=== PATIENT | female | born 1990 | race Hispanic/Latino ===

== ENCOUNTER 2017-06-11 02:41 | Emergency (ER) | payer SELFPAY ==
[2017-06-11] MEDS ORDERED: Lidocaine 1% PF 5 ML VIAL ONE (03:24)
[2017-06-11] MEDS ORDERED: Adacel (T-DAP) 0.5 ML VIAL ONE (04:15)
[2017-06-11] MEDS ORDERED: Bacitracin Zinc 1 Packet ONE (04:15)
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
== END 2017-06-11 04:45 | disposition home or self-care (01) ==
LOC: SCSER 02:41
DX: S61.412A Laceration without foreign body of left hand, initial encounter (principal); S61.452A Open bite of left hand, initial encounter; F41.9 Anxiety disorder, unspecified; F17.210 Nicotine dependence, cigarettes, uncomplicated; Y04.1XXA Assault by human bite, initial encounter
CPT/HCPCS: 12001; 90471; 90715; J2001

== ENCOUNTER 2017-11-09 13:32 | Emergency (ER) | payer SELFPAY | END 2017-11-09 14:33 | disposition home or self-care (01) | LOC: ERS 13:32 | DX: S06.0X0A Concussion without loss of consciousness, initial encounter (principal); F17.210 Nicotine dependence, cigarettes, uncomplicated; Y04.8XXA Assault by other bodily force, initial encounter | CPT/HCPCS: 99283 ==

== ENCOUNTER 2019-04-03 02:02 | Emergency (ER) | payer SELFPAY ==
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
== END 2019-04-03 02:55 | disposition home or self-care (01) ==
LOC: ERS 02:02
DX: S00.03XA Contusion of scalp, initial encounter (principal); F41.9 Anxiety disorder, unspecified; F17.210 Nicotine dependence, cigarettes, uncomplicated; W01.0XXA Fall on same level from slipping, tripping and stumbling without subsequent striking against object, initial encounter
CPT/HCPCS: 70450